=== PATIENT | female | born 1990 | race Two or more races ===

== ENCOUNTER 2022-08-28 21:16 | Emergency (ER) | payer OTHER ==
[~2022-08-28] VITALS: Ht 160 cm; Wt 99.8 kg
[2022-08-28] MEDS ORDERED: IBUPROFEN 400 MG TABLET PO ONE (23:00)
[2022-08-28] MEDS ORDERED: IBUPROFEN 400 MG TABLET ONE (23:06)
--- NOTE | 2022-08-28 23:13 | NUR ---
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
[2022-08-29 00:07] VITALS: BP 135/88
--- NOTE | 2022-08-29 00:07 | NUR ---
Patient discharged to home in stable condition. Written and verbal after care instructions given. Patient verbalizes understanding of instruction.
== END 2022-08-29 00:07 | disposition home or self-care (01) ==
LOC: ER 21:19
DX: M79.672 Pain in left foot (principal)
CPT/HCPCS: 73630-TC; 93971-TC